=== PATIENT | female | born 1975 | race Caucasian/White ===

== ENCOUNTER 2021-03-24 16:41 | Emergency (ER) | payer OTHER ==
[~2021-03-24] VITALS: Ht 180.3 cm; Wt 116.6 kg
[~2021-03-24 16:41] MED LIST: ALPRAZOLAM0.25 MG PO; BUPROPION XL150 MG PO; CELEXA40 MG PO; CYCLOBENZAPRINE10 MG PO; FLOMAX0.4 MG PO; GABAPENTIN400 MG PO; KEFLEX500 MG PO; LEVOTHYROXINE50 MCG PO; METOPROLOL SUC100 MG PO; MULTI-VITAMIN1 EACH PO; PERCOCET 5-3251 EACH PO; PYRIDIUM200 MG PO; TAGAMET400 MG PO; TRAMADOL HCL50 MG PO; TRAZODONE HCL150 MG PO; VITAMIN D3125 MCG PO; VITAMIN D3250 MC1 PO; VOLTAREN75 MG PO; ZOFRAN ODT4 MG PO; [UNRECOGNIZED DRUG - OTHER] SUB-Q
--- OUTSIDE RECORDS SUMMARY | 2021-03-24 16:44 | XMS ---
PreManage Notification: TORO FLORENTINO Security Spray Operator Events No recent Security Events currently on file [facility] There are no care providers on record at this time. Caden has no Care Guidelines for this patient. Maximiliano VISIT COUNT (12 MO.) 1 [place] TOTAL 1 NOTE: Visits indicate total known visits. ED/UCC VISIT TRACKING (12 MO.) 03/24/2021 16:42 [place] TYPE: Emergency COMPLAINT: - HEADACHE INPATIENT VISIT TRACKING (12 MO.) No inpatient visits to display in this time frame [email or web address]
== END 2021-03-24 19:47 | disposition home or self-care (01) ==
LOC: ED 16:41
DX: R51.9 Headache, unspecified (principal); Z88.8 Allergy status to other drugs, medicaments and biological substances; Z88.0 Allergy status to penicillin; Z91.018 Allergy to other foods; Z88.5 Allergy status to narcotic agent; Z88.1 Allergy status to other antibiotic agents; Z79.899 Other long term (current) drug therapy
CPT/HCPCS: 70450; 96374; 96375; 99284-25; J1200; J1790; J1885; J7030

== ENCOUNTER 2021-09-17 13:44 | Emergency (ER) | payer OTHER ==
[~2021-09-17] VITALS: Ht 180.3 cm; Wt 116.1 kg
--- OUTSIDE RECORDS SUMMARY | 2021-09-17 13:46 | XMS ---
PreManage Notification: TORO FLORENTINO Security Supplier Quality Events No recent Security Events currently on file [facility] JD ARNOLD Physician Security Test Engineer 03/27/2021-Current PHONE: Unknown Caden has no Care Guidelines for this patient. Maximiliano VISIT COUNT (12 MO.) 2 [place] TOTAL 2 NOTE: Visits indicate total known visits. ED/UCC VISIT TRACKING (12 MO.) 09/17/2021 13:44 [place] [facility] [place] TYPE: Emergency COMPLAINT: - SUICIDAL 03/24/2021 16:42 [place] TYPE: Emergency COMPLAINT: - HEADACHE DIAGNOSES: - Allergy to other foods - Headache, unspecified - Allergy status to penicillin - Allergy status to other antibiotic agents - Allergy status to narcotic agent - Other termite technician (current) drug therapy - Allergy status to other drugs, medicaments and biological substances INPATIENT VISIT TRACKING (12 MO.) No inpatient visits to display in this time frame [email or web address]
[2021-09-18] MEDS ORDERED: CLONAZEPAM1 MG PO (05:39)
[2021-09-18] MEDS ORDERED: PRAZOSIN HCL1 MG PO (05:41)
[2021-09-18] MEDS ORDERED: BUPROPION XL300 MG PO (05:42)
== END 2021-09-18 13:29 ==
LOC: ED 13:44
DX: R45.851 Suicidal ideations (principal); Z20.822 Contact with and (suspected) exposure to COVID-19; Z88.8 Allergy status to other drugs, medicaments and biological substances; Z88.0 Allergy status to penicillin; Z91.048 Other nonmedicinal substance allergy status; Z79.899 Other long term (current) drug therapy
CPT/HCPCS: 36415; 80053; 84703; 85025; 99284; A9270; C9803; G0480; U0003

== ENCOUNTER 2022-05-11 18:16 | Emergency (ER) | payer OTHER ==
[~2022-05-11] VITALS: Ht 180.3 cm; Wt 116.1 kg
[~2022-05-11 18:16] MED LIST changes: +BUPROPION XL300 MG PO; +CLONAZEPAM1 MG PO; +PRAZOSIN HCL1 MG PO
[2022-05-11] MEDS ORDERED: BUPROPION XL450 MG PO (19:01)
== END 2022-05-11 22:20 | disposition home or self-care (01) ==
LOC: ED 18:16
DX: G43.909 Migraine, unspecified, not intractable, without status migrainosus (principal); Z88.8 Allergy status to other drugs, medicaments and biological substances; Z88.0 Allergy status to penicillin; Z91.018 Allergy to other foods; Z88.5 Allergy status to narcotic agent; Z79.899 Other long term (current) drug therapy
CPT/HCPCS: 96361; 96374; 96375; 99283-25; J1200; J1790; J1885; J7121